=== PATIENT | female | born 1975 | race African-American/Black ===

== ENCOUNTER 2016-07-31 20:30 | Emergency (ER) | payer OTHER ==
[~2016-07-31] VITALS: Ht 170.2 cm; Wt 129.3 kg
[2016-07-31] MEDS ORDERED: NAPROSYN500 MG PO (22:14)
[2016-07-31 22:39] VITALS: BP 125/76
== END 2016-07-31 22:52 | disposition home or self-care (01) ==
LOC: ER 20:30
DX: M25.562 Pain in left knee (principal); Z86.2 Personal history of diseases of the blood and blood-forming organs and certain disorders involving the immune mechanism

== ENCOUNTER 2020-12-02 19:19 | Emergency (ER) | payer OTHER ==
[~2020-12-02] VITALS: Ht 170.2 cm; Wt 126.5 kg
[~2020-12-02 19:19] MED LIST: NAPROSYN500 MG PO
[2020-12-02] MEDS ORDERED: PENICILLIN V P500 MG PO ×2 (20:55→21:27)
[2020-12-02] MEDS ORDERED: NORCO5 PO ×2 (20:55→21:27)
[2020-12-02 21:30] VITALS: BP 132/51
== END 2020-12-02 21:22 | disposition home or self-care (01) ==
LOC: ER 19:19
DX: K08.89 Other specified disorders of teeth and supporting structures (principal); Z86.2 Personal history of diseases of the blood and blood-forming organs and certain disorders involving the immune mechanism; Z98.51 Tubal ligation status